=== PATIENT | male | born 1970 | race Caucasian/White ===

== ENCOUNTER 2016-08-27 15:06 | Emergency (ER) | payer BC ==
[~2016-08-27] VITALS: Ht 177.8 cm; Wt 99.8 kg
--- NOTE | 2016-08-27 15:35 | NUR ---
AAOX3, CAME TO ER C/O DIZZINESS, +NAUSEA NO VOMITING. RESP IS EVEN AND UNLABORED WITH NAD NOTED. SKIN IS WARM AND DRY. AWAITING MD FOR EVAL.
[2016-08-27] MEDS ORDERED: ONDANSETRON 4 MG TAB.RAPDIS ONE (15:43)
[2016-08-27] MEDS ORDERED: MECLIZINE HCL 25 MG TABLET ONE (15:43)
--- NOTE | 2016-08-27 15:50 | NUR ---
EKG AT BS
[2016-08-27] MEDS ORDERED: MECLIZINE HCL 12.5 MG TABLET PO ONE (16:00)
[2016-08-27] MEDS ORDERED: ONDANSETRON 4 MG TAB.RAPDIS PO ONE (16:00)
--- NOTE | 2016-08-27 16:11 | NUR ---
Patient discharged to home in stable condition. Written and verbal after care instructions given. Patient verbalizes understanding of instruction.
[2016-08-27 16:14] VITALS: BP 112/65
== END 2016-08-27 16:14 | disposition home or self-care (01) ==
LOC: ER 15:08
DX: H81.10 Benign paroxysmal vertigo, unspecified ear (principal); F10.20 Alcohol dependence, uncomplicated
CPT/HCPCS: 93005; 99283; A4606; J8597; Q0162; Z7610

== ENCOUNTER 2017-11-11 19:22 | Emergency (ER) | payer BC ==
[~2017-11-11] VITALS: Ht 177.8 cm; Wt 99.8 kg
[2017-11-11 19:29] VITALS: BP 107/73
--- NOTE | 2017-11-11 21:33 | NUR ---
CALLED PT'S NAME THREE TIMES, NO RESPONSE, WILL TRY AGAIN AT A LATER TIME. MADE AWARE.
--- NOTE | 2017-11-11 21:53 | NUR ---
PT'S NAME CALLED THREE TIMES, NO RESPONSE. 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
== END 2017-11-11 21:55 | disposition left against medical advice (07) ==
LOC: ER 19:24
DX: Z53.21 Procedure and treatment not carried out due to patient leaving prior to being seen by health care provider (principal)
CPT/HCPCS: A4606; Z7610

== ENCOUNTER 2019-07-21 20:16 | Emergency (ER) | payer BC, OTHER ==
--- NOTE | 2019-07-21 20:20 | NUR ---
CALLED PT FOR TRIAGE, NO ANSWER. PT NOT IN WAITING ROOM.
--- NOTE | 2019-07-21 20:25 | NUR ---
CALLED TO MADISYN NOT IN WAITING ROOM
--- NOTE | 2019-07-21 20:27 | NUR ---
CALLED ONCE AGAIN. NOT IN WAITING ROOM. ADVICED BY FRONT THAT PT LEFT.
--- NOTE | 2019-07-21 20:31 | NUR ---
Enedina travis in [facility] - 07/21/19 at 2102 by ROMA PT CALLED FOR TRIAGE, NO ANSWER.
--- NOTE | 2019-07-21 20:31 | NUR ---
PT CALLED FOR TRIAGE, NO ANSWER. PER ADMITTING REP PT LEFT AND DID NOT WANT TO BE SEEN AND PREFER TO GO TO URGENT CARE.
== END 2019-07-21 21:05 | disposition left against medical advice (07) ==
LOC: ER 20:20
DX: Z53.21 Procedure and treatment not carried out due to patient leaving prior to being seen by health care provider (principal)

== ENCOUNTER 2023-06-01 11:16 | Emergency (ER) | payer OTHER ==
[~2023-06-01] VITALS: Ht 177.8 cm; Wt 97.5 kg
[2023-06-01 12:15] LABS: BASOPHILS % (AUTO) 0.7 % (0.0-2.0); EOSINOPHILS # (AUTO) 0.4 K/uL (0.0-0.7); EOSINOPHILS % (AUTO) 7.7 % (0.0-6.0); HEMATOCRIT 43 % (39-51); HEMOGLOBIN 14.2 g/dL (13.5-17.5); LYMPHOCYTES # (AUTO) 1.5 K/uL (0.8-4.8); LYMPHOCYTES % (AUTO) 28.4 % (20.0-44.0); MEAN CORPUSCULAR HEMOGLOBIN 29 PG (26.0-33.0); MEAN CORPUSCULAR HGB CONC 33 g/dl (31.0-36.0); MEAN CORPUSCULAR VOLUME 87 fL (80-96); MONOCYTES # (AUTO) 0.4 K/uL (0.1-1.30); MONOCYTES % (AUTO) 7.3 % (2.0-12.0); NEUTROPHILS # (AUTO) 2.9 K/uL (1.8-8.9); NEUTROPHILS % (AUTO) 55.9 % (43.0-81.0); PLATELET COUNT (AUTO) 213 K/uL (150-450); RED BLOOD CELL COUNT(AUTO) 4.89 MIL/uL (4.5-6.0); RED CELL DISTRIBUTION WIDTH 14.5 % (11.5-15.0); WHITE BLOOD COUNT (AUTO) 5.1 K/uL (4.3-11.0)
[2023-06-01 12:29] LABS: ALANINE AMINOTRANSFERASE 40 U/L (12-78); ALBUMIN 4.3 g/dL (3.4-5.0); ALKALINE PHOSPHATASE 67 U/L (46-116); ASPARTATE AMINOTRANSFERASE 18 U/L (15-37); BILIRUBIN,DIRECT 0.1 mg/dL (0.0-0.2); BILIRUBIN,TOTAL 0.6 mg/dL (0.2-1.0); CALCIUM, SERUM 9.3 mg/dL (8.5-10.1); CARBON DIOXIDE 31 mmol/L (21-32); CHLORIDE 105 mmol/L (98-107); CREATININE 0.8 mg/dL (0.6-1.3); GLUCOSE 96 mg/dL (74-106); LIPASE 54 U/L (16-77); POTASSIUM 3.9 mmol/L (3.5-5.1); SODIUM SERUM 141 mmol/L (136-145); TOTAL PROTEIN, SERUM 7.9 g/dL (6.4-8.2); UREA NITROGEN, BLOOD 13 mg/dL (7-18)
[2023-06-01 13:28] VITALS: BP 135/75; TEMP 98.5; O2SAT 100
== END 2023-06-01 13:30 | disposition home or self-care (01) ==
LOC: ER 11:28
DX: R10.12 Left upper quadrant pain (principal); E11.9 Type 2 diabetes mellitus without complications
CPT/HCPCS: 36415; 80048-TC; 80076-TC; 83690-TC; 84484-TC; 85025-TC